=== PATIENT | male | born 1980 | race Caucasian/White ===

== ENCOUNTER 2017-03-10 23:18 | Emergency (ER) | payer OTHER ==
[2017-03-11] MEDS: LIDOCAINE WITH 8.4% SOD BICARB 3 ML DISP.SYRIN. IJ ×2 (01:15)
[2017-03-11] MEDS: cefTRIAXone IM 1 GM VIAL IM ×2 (01:17)
[2017-03-11] MEDS: LIDOCAINE 1% PF 2 ML VIAL. INJ ×2 (01:17)
[2017-03-11] MEDS: KETOROLAC 60 MG/2 ML INJ. IM ×2 (01:17)
== END 2017-03-11 01:30 | disposition home or self-care (01) ==
LOC: ER 23:18
DX: L02.416 Cutaneous abscess of left lower limb (principal)
CPT/HCPCS: 10060; 96372; 99284-25; J0696; J1885